=== PATIENT | female | born 1990 | race Caucasian/White ===

== ENCOUNTER 2018-01-14 18:15 | Inpatient (IN) ==
[2018-01-14 19:23] VITALS: BMI 29.4
[2018-01-14] MEDS ORDERED: CARBOPROST 250 MCG/ML INJECTION IM PRN (20:49)
[2018-01-14] MEDS ORDERED: LIDOCAINE 1% (10mg/ml) 2mL INJ PF SDV ID PRN (20:49)
[2018-01-14] MEDS ORDERED: MAG-AL + SIM ORAL LIQUID 30ml PO PRN (20:49)
[2018-01-14] MEDS ORDERED: METHYLERGONOVINE 0.2 MG/ML INJECTION IM PRN (20:49)
[2018-01-14] MEDS ORDERED: CALCIUM CARBONATE Chewable 500mg TABLET PO PRN (20:49)
[2018-01-14] MEDS ORDERED: ACETAMINOPHEN 500 MG TABLET PO PRN (20:49)
[2018-01-14] MEDS: LR 1,000 ML IV PRN ×2 (21:56→23:02)
--- NOTE | 2018-01-14 23:55 | Anesthesia Preoperative Report ---
Anesthesia Epidural/Spinal Rec - Date and Time Date: 01/14/18 Preoperative Diagnosis: Active labor Procedure: Labor Epidural Plan: Epidural - Vital Signs Vital Signs: 135/79 NPO since: 1800 /Para: P:0 Heart Rate: 66 (inches) - Medictaions & Allergies Inpatient Medications: Current Medications Acetaminophen (Tylenol) 500 - 1,000 mg PO Q4H PRN PRN Reason: Pain Al Hydroxide/Mg Hydroxide (Maalox Plus) 30 ml PO Q3H PRN PRN Reason: Indigestion Calcium Carbonate (Tums) 500 - 1,000 mg PO Q2H PRN PRN Reason: Indigestion Carboprost Tromethamine (Hemabate) 250 mcg IM O PRN PRN Reason: .Downtime Lactated Ringer's (Lactated Ringers) 1,000 mls @ 999 mls/hr IV .Q1H1M PRN Last Admin: 01/14/18 23:02 Dose: 999 mls/hr Lidocaine HCl (Xylocaine-Mpf 1% Vial) 0.2 mg ID O PRN PRN Reason: IV Start Methylergonovine Maleate (Methergine) 0.2 mg IM O PRN Misoprostol (Cytotec) 800 mcg DE ONCE PRN Allergies/Adverse Reactions: Allergies Allergy/AdvReac Type Severity Reaction Status Date / Time Sulfa (Sulfonamide AdvReac Verified 12/25/17 14:54 Antibiotics) - Home Medications Home Medications: Home Medications Medication Instructions Recorded Confirmed Type Vitamins 12/25/17 History - Medical History Other History: Reports: Now - Surgical History GI Surgery/Treatments: Reports: Other (Left knee) Musculoskeletal Surgery/Tx: Reports: Knee Arthroscopy (February 2011) Reproductive Surgery/Treatment: DENIES: Section Anesthesia Reactions: None Hx Family Anesthesia Reaction: No History of Motion Sickness: No - Social History Smoking Status: Never smoker Second Hand Exposure: No Substance Use Type: does not use Alcohol Intake Frequency: does not drink Hx Chewing Tobacco Use: No - Pertinent Findings Lab Data: CBC and BMP 01/14/18 21:32 EKG Rhythm: Normal Sinus Rhythm - Physical Exam Respiratory Exam: lungs clear Cardiovascular Exam: regular rate and rhythm - Airway Assessment Mallampati Score: II TMD: 3 Fingerbreadths Neck Extension: fair Overall Assessment: may be difficult intubation - ASA ASA Score: 2 - Discussion Discussion: Discussed risks/options/alternatives of anesthesia and questions answered. Patient consents. Nursing pain assessment noted. Anesthesia Discussion: spouse Attestation Statement: Prior to the delivery of any anesthetic medication, I examined the patient, developed the plan, obtained the patient's consent and discussed the risk and benefits of the procedure with the patient/guardian.
[2018-01-15] MEDS ORDERED: CITRIC ACID/SODIUM CITRATE 30ml PO ONE (01:17)
[2018-01-15] MEDS ORDERED: CEFAZOLIN PREMIX (MC ONLY) 2 GM/50 ML BAG IV ONE (01:17)
[2018-01-15] MEDS ORDERED: FAMOTIDINE PB 20 MG/50 ML BAG IV ONE (01:17)
[2018-01-15] MEDS ORDERED: PHENYLEPHRINE INJ 10 MG/ML VIAL IV ONE (01:36)
[2018-01-15] MEDS ORDERED: LIDOCAINE 2%/EPI 1:200,000 20ml SDV PF ONE (01:40)
[2018-01-15] MEDS ORDERED: D5LR 1,000 ML IV SCH (01:45)
[2018-01-15] MEDS: OXYTOCIN BOLUS BAG 30 UNIT/500 ML ML IV SCH ×2 (02:10→02:41)
[2018-01-15] MEDS ORDERED: MORPHINE SULFATE PF 5mg/10ml INJ (Duramorph) ONE (02:24)
[2018-01-15] MEDS ORDERED: HYDROCODONE/APAP 5mg/325mg TABLET PO PRN (02:37)
[2018-01-15] MEDS ORDERED: DiphenhydrAMINE 25 MG CAPSULE PO PRN ×2 (02:37→20:49)
[2018-01-15] MEDS ORDERED: HYDROCORTISONE 2.5% CREAM 30gm RECTALLY PRN (02:37)
[2018-01-15] MEDS ORDERED: SIMETHICONE 80 MG CHEWABLE TABLET PO PRN (02:37)
[2018-01-15] MEDS ORDERED: MEASLES-MUMPS-RUBELLA VACCINE 0.5ml INJECTION SQ ONE (02:37)
[2018-01-15] MEDS ORDERED: OXYTOCIN DRIP 30 UNIT/500 ML ML IV SCH (02:45)
--- NOTE | 2018-01-15 02:57 | Operative Note ---
Operative Note - Date of Operation Date of Operation: 01/15/18 - General : 1 Expected Date of Delivery: 01/13/18 - Preoperative Diagnosis Nonreassuring FHT - Postoperative Diagnosis Postoperative Diagnosis: Same - Procedure Primary - Surgeon Surgeon: Frank Garcia DO - Electric Stove Mechanic OB Electric Stove Mechanic: Thuy Abbasi MD - Anesthesia Anesthesia Provider: Lam Chavez CRNA Anesthesia Type: Epidural - Estimated Blood Loss Estimated Blood Loss:: 700 - Findings Findings: viable male - APGARS : 2/7/8 - [place] Weight [place] Weight (grams): 3280 - [place] Name [place] Name: Boris - Description of Procedure Description of Procedure: See dictation
[2018-01-15] MEDS: D5LR 1,000 ML IV SCH ×2 (03:45→14:32)
[2018-01-15] MEDS: IBUPROFEN 800 MG TABLET PO PRN ×2 (05:00→17:52)
[2018-01-15] MEDS: DOCUSATE CALCIUM 240 MG CAPSULE PO SCH (08:37)
[2018-01-15] MEDS ORDERED: ROPIVACAINE 0.2% 2MG/ML INJ 40 MG, SUFentanil 50 MCG in NS 100 ML ID ONE (09:00)
--- NOTE | 2018-01-15 09:20 | Operative Note ---
DATE OF OPERATION 01/15/2018 EXPECTED DATE OF DELIVERY 01/13/2018 PREOPERATIVE DIAGNOSES 1. Spontaneous labor. 2. Nonreassuring heart tones. POSTOPERATIVE DIAGNOSES 1. Spontaneous labor. 2. Nonreassuring heart tones. 3. Delivered. PROCEDURE Primary low transverse section. SURGEON Dr. Frank Garcia CHILD DAY CARE TEACHER Dr. Thuy Abbasi ANESTHESIA PROVIDER Lam Chavez CRNA ANESTHESIA TYPE Epidural. ESTIMATED BLOOD LOSS 700 ml FINDINGS A viable male infant in cephalic presentation with Apgars of 2/7/8. weight was 3280. Name was Boris. INDICATIONS FOR PROCEDURE This is a G1, P0 that presented to [facility] with spontaneous labor. She had progressed to 5 cm, had artificial rupture of membranes. She continued to progress slowly and then had late decelerations that could not be resolved with resuscitation and decision was made to proceed with section. Risks, benefits and alternatives to procedure were discussed with the patient. Questions were elicited and answered. DESCRIPTION OF PROCEDURE The patient was taken to the operating theatre where epidural anesthesia was found to be adequate at this time. She was then prepped and draped in the dorsal supine position with a leftward tilt. Pfannenstiel skin incision was made with the scalpel approximately 2 cm above the pubic bone. This incision was then carried through the underlying layers to the fascia. The fascia was incised in the midline. The fascial incision was extended laterally with the Ivan scissors. Superior aspect of the fascial incision was grasped with a Chary clamp to elevate it and the rectus muscle dissected off sharply with the Ivan scissors. Attention was then turned to the inferior aspect of the fascial incision which was grasped with the Chary clamp, elevated and the rectus muscle dissected off sharply with the Ivan scissors. The rectus muscles were in the midline bluntly and the peritoneum was entered bluntly. At this time the peritoneal incision was then extended superiorly and inferiorly with good visualization of the bladder. The bladder blade was inserted and the vesicouterine peritoneum was picked up and entered sharply with the Metzenbaum scissors. This incision was then extended laterally and the bladder flap was created digitally. Uterine incision was then made in a transverse fashion with the scalpel and the uterine incision was then extended bluntly with cephalad- caudad pressure. Thick meconium was noted. At this time the infant's head was elevated up out of the pelvis and attempt to deliver the was performed. Difficulty with delivery of the head and decision was made to proceed with a vacuum. The soft cup Mityvac was then used, applied to the scalp. All maternal tissue was noted to be well away. Pressure was elevated to 50 mmHg and the 's head was delivered with one pull. Pressure was removed and the remainder of the fetus was delivered. Cord was clamped and cut x 2 and the was taken to the phlebotomy technician who was waiting. At this time the cord segment was received and the placenta was delivered expectantly. The uterus was exteriorized and cleared of all clot and debris and the uterine incision was then repaired with 0 Monocryl in a running-lock fashion. A second layer of the same suture was used in an imbricating fashion and excellent hemostasis was noted. The bladder flap was then repaired with 3-0 Vicryl in a running fashion. At this time the posterior cul-de-sac was cleared of all clot and debris and the uterus was returned to the abdomen. The gutters were removed of all clot and debris. Excellent hemostasis was noted and the peritoneum was then repaired with 3-0 Monocryl in a running fashion. The rectus muscle was then reapproximated gently with 3-0 Monocryl and the fascial incision was repaired with 0 Vicryl in a running fashion. Subcutaneous layer was closed with 2-0 plain gut in a running fashion and the skin was closed with 4-0 Monocryl and Dermabond. The patient tolerated the procedure well. Sponge, lap and needle counts were correct x 2 and the patient was taken to the recovery room in stable condition. DINORAH
[2018-01-15] MEDS ORDERED: SIMETHICONE 80 MG CHEWABLE TABLET PO SCH (09:30)
--- NOTE | 2018-01-15 17:37 | Anesthesia Postoperative Note ---
- Date and Time Date: 01/15/18 Time: 17:35 - Status Patient Participated in Evaluation: Patient Participated in Person Vital Signs: Temperature 97.7 F 01/15/18 12:22 Pulse Rate 61 01/15/18 12:22 Respiratory Rate 14 01/15/18 12:22 Blood Pressure 127/79 01/15/18 12:22 Pulse Oximetry 99 01/15/18 12:22 Respiratory Function: Airway Patent Cardiovascular Function: Regular Pulse Mental Status: Alert and Oriented Pain Intensity: 2 Hydration: Taking PO Fluids, Nausea (nausea today, but has subsided recently) Complications During Recover: None Apparent Post Anesthesia Care Notes: full motor and sensation has returned - Follow-Up Instructions Instructions: Per Surgeon
[2018-01-16] MEDS: IBUPROFEN 800 MG TABLET PO PRN ×3 (00:47→18:00)
[2018-01-16] MEDS: D5LR 1,000 ML IV SCH (02:20)
[2018-01-16] MEDS: PRENATAL VITAMIN TABLET PO SCH ×2 (02:20→11:09)
[2018-01-16] MEDS ORDERED: ACETAMINOPHEN 500 MG TABLET PO PRN (02:34)
--- NOTE | 2018-01-16 09:05 | OB/GYN Progress Note ---
OB-PP Progress Note - General PPD1 POD:: POD1 Maternal Group B Strep: Negative Maternal blood type: A+ Maternal Rubella Status: Not Immune - Subjective Date: 01/16/18 Lochia: Minimal Pain: controlled Voiding: voiding Nausea or Vomiting Present: No - Objective Vital Signs: Last Vital Signs Temp 97.9 F 01/16/18 06:00 Pulse 70 01/16/18 06:00 Resp 16 01/16/18 06:00 BP 121/67 01/16/18 06:00 Pulse Ox 96 01/16/18 06:00 General: alert and oriented Cardiovascular: regular rate,rhythm Respiratory: non-labored Abdomen: fundus firm, non-tender Extremities: non-tender Edema: none - Assessment Assessment: SP, Primary C/S - Plan Plan: routine care
[2018-01-16] MEDS: DOCUSATE CALCIUM 240 MG CAPSULE PO SCH (11:09)
[2018-01-17 09:32] VITALS: PULSE 60; RESP 16; TEMP 98; O2SAT 95
[2018-01-17 10:38] VITALS: BP 122/82
[2018-01-17] MEDS ORDERED: Oxycodone/Acetaminophen 5/325 1 TAB PO PRN (10:45)
--- NOTE | 2018-01-17 10:47 | OB/GYN Progress Note ---
OB-PP Progress Note - General PPD2 Maternal Group B Strep: Negative Maternal blood type: A+ Maternal Rubella Status: Not Immune - Subjective Date: 01/17/18 Lochia: Minimal Pain: controlled (She hasn't taken a [place] in 2 days because she didn't like how she felt. ) Voiding: voiding - Objective Vital Signs: Last Vital Signs Temp 98.0 F 01/17/18 09:00 Pulse 60 01/17/18 09:00 Resp 16 01/17/18 09:00 BP 122/82 01/17/18 10:38 Pulse Ox 95 01/17/18 09:00 General: alert and oriented Abdomen: fundus firm, non-tender Incision: normal, no erythema, dry, intact Extremities: non-tender Edema: none - Assessment Assessment: Primary C/S - Plan Plan: routine care, discharge home, continue PNV Switch to Percocet.
[2018-01-17] MEDS: PRENATAL VITAMIN TABLET PO SCH (10:51)
[2018-01-17] MEDS: DOCUSATE CALCIUM 240 MG CAPSULE PO SCH (10:51)
== END 2018-01-17 12:00 | disposition home or self-care (01) | DRG 766 ==
LOC: MC 18:15 → OBOBS 18:15 → MC 20:48
PROVIDERS: ADMIT Obstetrics & Gynecology; ATTEND Obstetrics & Gynecology